=== PATIENT | female | born 1960 | race Caucasian/White ===

== ENCOUNTER → 2016-08-22 | Outpatient (CLI) | payer BC | LOC: MW.CHFP 08:43 | PROVIDERS: ATTEND Physician Assistant | DX: T14.8 Other injury of unspecified body region (principal); W57.XXXA Bitten or stung by nonvenomous insect and other nonvenomous arthropods, initial encounter | CPT/HCPCS: 36415; 86618 ==

== ENCOUNTER 2017-02-28 10:01 | Day surgery (SDC) | payer BC ==
[~2017-02-28 10:01] MED LIST: Acetaminophen/HYDROcodone 325-5 MG Tab PO PRN; Lactated Ringers 1,000 ML IV SCH; ceFAZolin 2 GM in Premix Bag 1 BAG IV SCH
[2017-02-28] MEDS ORDERED: Lidocaine 1% 20 ML MDV ONE (12:23)
== END 2017-02-28 16:42 | disposition home or self-care (01) ==
LOC: MW.SDS 10:01
PROVIDERS: ATTEND Orthopaedic Surgery
DX: M17.11 Unilateral primary osteoarthritis, right knee (principal); Z53.8 Procedure and treatment not carried out for other reasons